=== PATIENT | female | born 1945 ===

== ENCOUNTER 2021-02-11 09:48 | Outpatient (REF) | payer MEDICARE, MEDICAID, SELFPAY | END 2021-02-11 09:49 | disposition home or self-care (01) | LOC: HO.HAP 09:48 | PROVIDERS: Visit Provider Internal Medicine | DX: Z46.1 Encounter for fitting and adjustment of hearing aid (principal); H90.41 Sensorineural hearing loss, unilateral, right ear, with unrestricted hearing on the contralateral side | CPT/HCPCS: V5011 ==

== ENCOUNTER → 2021-08-27 09:46 | Outpatient (BNVA) | payer MEDICARE, MEDICAID, SELFPAY | PROVIDERS: PCP Internal Medicine; Visit Provider Nurse Practitioner Family | DX: M54.16 Radiculopathy, lumbar region (principal) | CPT/HCPCS: 99202 ==

== ENCOUNTER → 2021-11-01 10:51 | Outpatient (BNVA) | payer MEDICARE, MEDICAID, SELFPAY | PROVIDERS: PCP Internal Medicine; Visit Provider Nurse Practitioner Family | DX: M54.16 Radiculopathy, lumbar region (principal); T14.8XXA Other injury of unspecified body region, initial encounter | CPT/HCPCS: 99212 ==

== ENCOUNTER 2022-01-14 05:58 | Outpatient (REF) | payer MEDICARE, MEDICAID, SELFPAY | END 2022-01-14 05:59 | disposition home or self-care (01) | LOC: HO.RADIR 05:58 | PROVIDERS: Visit Provider Anesthesiology | DX: Z13.89 Encounter for screening for other disorder (principal) | CPT/HCPCS: J3300; Q9967 ==

== ENCOUNTER 2022-01-28 05:58 | Outpatient (REF) | payer MEDICARE, MEDICAID, SELFPAY ==
--- NOTE | ~2022-01-28 | FL_ITS ---
EXAMINATION: XR FLUOROSCOPY WITH IMAGES CLINICAL INFORMATION: Radiculopathy in the lumbar region COMPARISON: None. TECHNIQUE: Fluoroscopy performed by Dr. Lewis.. Fluoroscopy time: 0.5 minutes DAP: 13.5 Gycm2 Images: 4 FINDINGS: Fluoroscopy demonstrating a needle and contrast overlying the spine. FL/FL guidance in treatment room IMPRESSION: Imaging of the spine during a spinal injection.
== END 2022-01-28 05:59 | disposition home or self-care (01) ==
LOC: HO.RADIR 05:58
PROVIDERS: Visit Provider Anesthesiology
DX: M54.16 Radiculopathy, lumbar region (principal); T14.8XXA Other injury of unspecified body region, initial encounter
CPT/HCPCS: 64483; J3300; Q9967

== ENCOUNTER → 2022-02-21 08:03 | Outpatient (BNVA) | payer MEDICARE, MEDICAID, SELFPAY | PROVIDERS: PCP Internal Medicine; Visit Provider Internal Medicine | DX: M47.27 Other spondylosis with radiculopathy, lumbosacral region (principal) | CPT/HCPCS: 99212 ==

== ENCOUNTER 2022-03-17 10:26 | Outpatient (REF) | payer MEDICARE, MEDICAID, SELFPAY ==
--- NOTE | ~2022-03-17 | MR_ITS ---
EXAMINATION: MR LUMBAR SPINE WITHOUT CONTRAST CLINICAL INFORMATION: Right leg pain. Back pain. COMPARISON: None TECHNIQUE: MRI of the lumbar spine was obtained using routine sequences without contrast. FINDINGS: VERTEBRAL BODIES AND PARASPINAL STRUCTURES: The marrow signal is within normal limits. There is a mild chronic superior endplate compression fracture at the L4 level. Slight retrosubluxation evident at the L4-L5 level. The paraspinal soft tissues are unremarkable. Left-sided colonic diverticulosis partially visualized. There are mild degenerative changes of the SI joints. CONUS MEDULLARIS AND CAUDA EQUINA: Normal, terminating at the level of L1. No lower cord signal abnormality is seen. The cauda equina nerve roots are normal. SPINAL LEVELS: L1-L2: No disc pathology, central canal stenosis, or foraminal narrowing. L2-L3: Very mild disc bulge and mild facet arthropathy without central canal stenosis or foraminal encroachment. L3-L4: Mild broad-based posterior disc bulge and hypertrophic facet arthropathy resulting in [id number]-scommdib central canal stenosis and thecal sac distortion. Bulging disc mildly encroaches upon the neural foramina. L4-L5: Slight retrosubluxation and broad-based posterior disc bulge with moderate facet arthropathy resulting in severe central canal stenosis and thecal sac compression. Mild bilateral foraminal narrowing. L5-S1: Moderate facet arthropathy and mild disc bulge present without central canal stenosis. Shallow right foraminal disc protrusion impresses upon the exiting right L5 nerve root. MR/MR lumbar spine wo con IMPRESSION: 1. Mild chronic superior endplate compression fracture at the L4 level. 2. Severe central canal stenosis and thecal sac distortion at the L4-L5 level with a broad-based disc bulge and facet arthropathy. 3. Moderate facet degeneration and shallow right foraminal disc protrusion at the L5-S1 level impressing upon the exiting right L5 nerve root. 4. [id number] central canal stenosis at the L3-L4 level with mild bilateral foraminal encroachment.
== END 2022-03-17 10:27 | disposition home or self-care (01) ==
LOC: HO.MRI 10:26
PROVIDERS: Visit Provider Internal Medicine
DX: M47.27 Other spondylosis with radiculopathy, lumbosacral region (principal)
CPT/HCPCS: 72148

== ENCOUNTER → 2022-03-26 09:06 | Outpatient (BNVA) | payer MEDICARE, MEDICAID, SELFPAY | PROVIDERS: PCP Internal Medicine; Visit Provider Nurse Practitioner Family | DX: M47.26 Other spondylosis with radiculopathy, lumbar region (principal); M48.00 Spinal stenosis, site unspecified; G89.11 Acute pain due to trauma; M25.511 Pain in right shoulder | CPT/HCPCS: Q3014 ==

== ENCOUNTER → 2022-04-08 14:55 | Outpatient (BNVA) | payer MEDICARE, MEDICAID, SELFPAY | PROVIDERS: PCP Internal Medicine; Visit Provider Nurse Practitioner Family | DX: Z71.2 Person consulting for explanation of examination or test findings (principal); M25.511 Pain in right shoulder | CPT/HCPCS: Q3014 ==